=== PATIENT | male | born 1955 | race Caucasian/White ===

== ENCOUNTER 2016-08-06 09:53 | Emergency (ER) | payer OTHER ==
[~2016-08-06] VITALS: Wt 72.0 kg
[2016-08-06] MEDS ORDERED: SOD CHLORIDE 0.9% 1,000 ML IV STA (10:10)
[2016-08-06] MEDS ORDERED: ONDANSETRON 4 MG INJ IV STA (10:10)
[2016-08-06] MEDS ORDERED: morphine 4 MG/ML VIAL IV STA (10:10)
--- NOTE | 2016-08-06 10:10 | ERA ---
ER Documentation Chief Complaint Date/Time DATE: 08/06/16 TIME: 10:10 Chief Complaint abd pain for the past few months. nausea and diarrhea. mild blood in stools HPI 61-year-old male with a history of diverticulitis, prediabetes, gastritis/GERD and hernia repair April 2016 ambulatory to the ED complaining of a 2-3 week history of mild to moderate, achy and crampy diffuse lower abdominal pain which localizes to the left lower quadrant. No relieving or exacerbating factors. Nausea and constipation but no vomiting or diarrhea. Occasional blood-streaked stools. No hematemesis. He has also been experiencing intermittent palpitations over the last several weeks but denies chest pain or shortness of breath. No shortness of breath or cough. No weight loss or gain. No night sweats. Denies fevers or chills. ROS All systems reviewed and are negative except as per history of present illness. Medications Home Meds No Active Prescriptions or Reported Meds Allergies Allergies: Coded Allergies: No Known Allergy (Unverified , 08/06/16) PMhx/Soc Reviewed in chart. As per HPI History of Surgery: Yes (Right inguinal hernia repair 04/2016) Hx Neurological Disorder: No Hx Respiratory Disorders: No Hx Cardiac Disorders: No Hx Psychiatric Problems: No Hx Miscellaneous Medical Probl: Yes (Prediabetes, diverticulitis) Hx Alcohol Use: No Hx Substance Use: No Hx Tobacco Use: No FmHx Mother: Diabetes Physical Exam Vitals Vital Signs Date Time Temp Pulse Resp B/P Pulse Ox O2 Delivery O2 Flow Rate FiO2 08/06/16 09:55 98.6 88 20 157/91 98 Physical Exam Const: Alert, anxious but in no acute distress. Head: Atraumatic Eyes: Normal Conjunctiva ENT: Normal External Ears, Nose and Mouth. Neck: Full range of motion. Nontender. No JVD. No lymphadenopathy. Resp: Breath sounds are equal and clear to auscultation bilaterally Cardio: Regular rate and rhythm, no murmurs Abd: Soft, mild, diffuse lower abdominal tenderness but no rebound or guarding. No masses or abnormal pulsations. Skin: No petechiae or rashes Back: No midline or flank tenderness Ext: No cyanosis, or edema Neur: Awake and alert. Cranial nerves II through XII are grossly intact. No focal deficit observed. Psych: Patient appears anxious but not depressed. Result Diagram: 08/06/16 1020 08/06/16 1020 Results 24 hrs Laboratory Tests Test 08/06/16 10:20 08/06/16 10:42 Alanine Aminotransferase (ALT/SGPT) 30IU/L Albumin 4.1g/dl Albumin/Globulin Ratio 1.41 Alkaline Phosphatase 87IU/L Anion Gap 13 Aspartate Amino Transf (AST/SGOT) 36IU/L Basophils # 0.010^3/ul Basophils % 0.5% Blood Urea Nitrogen 7mg/dl Calcium Level 9.0mg/dl Carbon Dioxide Level 28mmol/L Chloride Level 94mmol/L Creatinine 0.84mg/dl Direct Bilirubin 0.00mg/dl Eosinophils # 0.010^3/ul Eosinophils % 0.9% Globulin 2.90g/dl Glucose Level 107mg/dl Hematocrit 41.3% Hemoglobin 14.4g/dl Indirect Bilirubin 0.4mg/dl Lipase 76U/L Lymphocytes # 0.810^3/ul Lymphocytes % 20.2% Mean Corpuscular Hemoglobin 33.7pg Mean Corpuscular Hemoglobin Concent 34.8g/dl Mean Corpuscular Volume 97.1fl Mean Platelet Volume 7.5fl Monocytes # 0.410^3/ul Monocytes % 9.3% Neutrophils # 2.610^3/ul Neutrophils % 69.1% Nucleated Red Blood Cells # 0.010^3/ul Nucleated Red Blood Cells % 0.0/100WBC Platelet Count 38659^3/UL Potassium Level 4.3mmol/L Red Blood Count 4.2610^6/ul Red Cell Distribution Width 13.1% Sodium Level 131mmol/L Total Bilirubin 0.4mg/dl Total Protein 7.0g/dl Troponin I < 0.012ng/ml White Blood Count 3.810^3/ul Urine Bacteria OCCASIONAL Urine Bilirubin NEGATIVE Urine Clarity CLEAR Urine Color LT. YELLOW Urine Glucose NEGATIVE% Urine Hemoglobin TRACE Urine Ketones NEGATIVE Urine Leukocyte Esterase NEGATIVE Urine Microscopic RBC 0-2/HPF Urine Microscopic WBC 0-2/HPF Urine Nitrite NEGATIVE Urine Specific [place] <=1.005 Urine Total Protein NEGATIVE Urine Urobilinogen 0.2 E.U./dL Urine pH 6.0 Current Medications Medications (Trade) Dose Ordered Sig/Irina Route PRN Reason Start Time Stop Time Status Last Admin Dose Admin Sodium Chloride (NS) 1,000 ml @ 1,000 mls/hr Q1H STAT IV 08/06/16 10:10 08/06/16 11:09 08/06/16 10:38 Morphine Sulfate (morphine) 4 mg ONCE STAT IV 08/06/16 10:10 08/06/16 10:11 08/06/16 10:38 Ondansetron HCl (Zofran Inj) 4 mg ONCE STAT IV 08/06/16 10:10 08/06/16 10:11 08/06/16 10:38 IV Flush 10 ml 10 ml STK-MED ONCE .ROUTE 08/06/16 11:28 08/06/16 11:29 DC Sodium Chloride (NS) 100 ml @ ud STK-MED ONCE .ROUTE 08/06/16 11:28 08/06/16 11:29 DC Iohexol (Omnipaque 300mg/ ml) 150 ml STK-MED ONCE .ROUTE 08/06/16 11:28 08/06/16 11:29 DC RHYTHM STRIP INTERPRETATION: Time:10:15. Sinus rhythm. Ventricular rate 74. No ectopy. Indication: Palpitations. EKG: TIME: 12:58. Sinus rhythm with sinus arrhythmia. Rate 72. Septal Q waves in leads V1 and V2. No acute ST segment elevation or depression. No ectopy. EP Interpretation: Abnormal EKG. IMAGING: PROCEDURE: XR Chest. CLINICAL INDICATION: Abdominal Pain. Chest pain. TECHNIQUE: Single frontal chest x-ray. COMPARISON: None. FINDINGS: The lungs are clear of acute infiltrates, edema, effusions, or masses.. The cardiomediastinal silhouette is unremarkable. The osseous structures are intact. IMPRESSION: No acute cardiopulmonary disease. RPTAT: HJPL .Dirk Espinoza MD, MD Date Time Electronically viewed and signed by .Dirk Espinoza MD, on 08/06/2016 12:10 PROCEDURE: CT Abdomen and Pelvis with contrast. CLINICAL INDICATION: Abdominal pain TECHNIQUE: CT scan of the abdomen and pelvis with contrast was performed on a multidetector high-resolution CT scanner. 90 cc of Omnipaque-300 was injected intravenously. No oral contrast was administered. Coronal and sagittal reformatted images were obtained from the axial source images. Images were reviewed on a high-resolution PACS workstation. The total exam CTDI equals 10.26 mGy and the total exam DLP equals 615.82 mGy-cm. One or more of the following dose reduction techniques were used: - Automated exposure control. - Adjustment of the mA and/or kV according to patient size. - Use of iterative reconstruction technique. COMPARISON: None. FINDINGS: Lungs: Linear atelectasis/fibrosis is seen at the lung bases. Centrolobular emphysematous changes are apparent in the right lower lung lobe. Cylindrical bronchiectasis is seen in the right lower lobe and to a lesser extent left lower lobe. Liver: No abnormality seen. Gallbladder: No abnormality seen. Spleen: No abnormality seen. Stomach: Food material/debris, fluid and air in the stomach. Pancreas: No abnormality seen. Adrenals: No abnormality seen. Kidneys: Mild to moderate right hydronephrosis and mild left hydronephrosis which could be secondary to full bladder.. No renal or ureteral stone is seen on this contrast-enhanced study. Abdominal aorta: No aneurysm seen. Atherosclerotic calcification is seen. Calcification in iliac arteries. Lymph nodes: No enlarged lymph nodes are seen. Small bowel: No dilated small bowel loops are seen. Colon: Moderate amount of stool in the rectum. Diverticula in transverse colon. There is no specific evidence of acute diverticulitis seen. Appendix: No abnormality seen. Bladder: No abnormality seen Pelvic organs: No abnormality seen Ascites: None seen. Osseous structures: Lumbar spondylosis. Mild degenerative changes at sacroiliac joints and hips. Small likely bone island in the right femoral head. Bilateral L5 spondylolysis with grade 1 L5 on S1 spondylolisthesis. Schmorl's nodes in thoracolumbar spine. The patient appears to possibly be status post right inguinal hernia surgery. Correlation with past surgical history. IMPRESSION: Centrolobular emphysematous changes are apparent in the right lower lung lobe. Cylindrical bronchiectasis is seen in the right lower lobe and to a lesser extent left lower lobe. Mild to moderate right hydronephrosis and mild left hydronephrosis which could be secondary to full bladder. Please see above. RPTAT: HJES .Dirk Díaz MD, MD Date Time Electronically viewed and signed by .Dirk Díaz MD, MD on 08/06/2016 11:55 .S/ .L/ Procedures/MDM DOCUMENTS REVIEWED: ED nurse, no prior records available REEXAMINATION/REEVALUATION: Time: 12:30. Sinus rhythm without ectopy. Abdomen soft nontender. No nausea or vomiting. [employer]-year-old male with a history of diverticulitis, prediabetes, gastritis/GERD and hernia repair April 2016 ambulatory to the ED complaining of a 2-3 week history of abdominal pain and palpitations. CT reveals diverticulosis no diverticulitis. Mild bilateral hydronephrosis of uncertain etiology as there is no evidence of obstruction and constipation. No acute intra-abdominal process including abdominal aortic aneurysm, obstruction, appendicitis or mesenteric ischemia. No UTI or pyelonephritis. Palpitations of uncertain etiology. No acute ischemic EKG changes or elevated troponin. Stable for discharge with precautionary instructions and outpatient follow-up as counseled. Patient understands that the etiology of his symptoms are not definitively established and outpatient follow-up is mandatory. Counseled patient regarding diagnostic workup, diagnosis and need for followup. Understands to return to ED if symptoms recur, worsen or any other concerns. Departure Diagnosis: Primary Impression: Abdominal pain of unknown etiology Additional Impressions: Constipation Qualified Code: K59.00 - Constipation, unspecified constipation type Palpitations Condition: Stable Patient Instructions: Abdominal Pain, Unkown Cause, (Male), Constipation (Adult ) ADRI DWYER MD Aug 06, 2016 10:10 ADRI DWYER MD Aug 06, 2016 10:10
[2016-08-06 10:45] LABS: ALBUMIN 4.1 g/dl (3.3-4.9); CHLORIDE 94 mmol/L (97-110)
[2016-08-06 10:46] LABS: POTASSIUM 4.3 mmol/L (3.5-5.1); SODIUM 131 mmol/L (135-144)
[2016-08-06 10:48] LABS: ALBUMIN/GLOBULIN RATIO 1.41; ALKALINE PHOSPHATASE 87 IU/L (42-121); ANION GAP 13 (8-16); ASPARTATE AMINO TRANSFERASE 36 IU/L (15-46); BILIRUBIN,INDIRECT 0.4 mg/dl (0-1.1); BILIRUBIN,TOTAL 0.4 mg/dl (0.2-1.3); BLOOD UREA NITROGEN 7 mg/dl (7-20); CARBON DIOXIDE 28 mmol/L (21-31); CREATININE 0.84 mg/dl (0.61-1.24)
[2016-08-06 10:49] LABS: ALANINE AMINOTRANSFERASE 30 IU/L (13-69); GLUCOSE 107 mg/dl (70-220)
[2016-08-06 10:54] LABS: BASOPHILS % 0.5 % (0.0-2.0); EOSINOPHILS % 0.9 % (0.0-7.0); HEMATOCRIT 41.3 % (42.0-52.0); HEMOGLOBIN 14.4 g/dl (14.0-18.0); LYMPHOCYTES # 0.8 10^3/ul (0.8-2.9); LYMPHOCYTES % 20.2 % (15.0-51.0); MEAN CORPUSCULAR HEMOGLOBIN 33.7 pg (29.0-33.0); MEAN CORPUSCULAR HGB CONC 34.8 g/dl (32.0-37.0); MEAN CORPUSCULAR VOLUME 97.1 fl (82.0-101.0); MEAN PLATELET VOLUME 7.5 fl (7.4-10.4); MONOCYTE # 0.4 10^3/ul (0.3-0.9); MONOCYTES % 9.3 % (0.0-11.0); NEUTROPHIL # 2.6 10^3/ul (1.6-7.5); NEUTROPHILS % 69.1 % (39.0-77.0); PLATELET COUNT 226 10^3/UL (140-440); RED BLOOD COUNT 4.26 10^6/ul (4.70-6.10); RED CELL DISTRIBUTION WIDTH 13.1 % (11.5-14.5); UNCORRECTED WBC 3.8 10^3/ul (4.8-10.8); WHITE BLOOD COUNT 3.8 10^3/ul (4.8-10.8)
[2016-08-06 10:56] LABS: CONDITION 1
[2016-08-06 11:08] LABS: TROPONIN-I < 0.012 ng/ml (0.00-0.12)
[2016-08-06 11:11] LABS: ADD UMIC YES; URINE BILIRUBIN (Dip) NEGATIVE (NEGATIVE); URINE BLOOD (Dip) TRACE (NEGATIVE); URINE COLOR LT. YELLOW (YELLOW); URINE GLUCOSE (Dip) NEGATIVE (NEGATIVE); URINE KETONES (Dip) NEGATIVE (NEGATIVE); URINE LEUKOCYTE ESTERASE (Dip) NEGATIVE (NEGATIVE); URINE NITRITE (Dip) NEGATIVE (NEGATIVE); URINE TOTAL PROTEIN (Dip) NEGATIVE (NEGATIVE); URINE UROBILINOGEN (Dip) 0.2 E.U./dL (0.1-1.0)
[2016-08-06] MEDS ORDERED: IOHEXOL 300MG/ML 150 ML BTL ONE (11:28)
[2016-08-06] MEDS ORDERED: SOD CHLORIDE 0.9% 100 ML ONE (11:28)
[2016-08-06 11:35] LABS: BACTERIA,URINE OCCASIONAL; URINE RBCS 0-2 /HPF (0)
--- NOTE | 2016-08-06 11:55 | RADRPT ---
PROCEDURE: CT Abdomen and Pelvis with contrast. CLINICAL INDICATION: Abdominal pain TECHNIQUE: CT scan of the abdomen and pelvis with contrast was performed on a multidetector high-r Rapid7olution CT scanner. 90 cc of Omnipaque-300 was injected intravenously. No oral contrast was admini stered. Coronal and sagittal reformatted images were obtained from the axial source images. Images w ere reviewed on a high-resolution PACS workstation. The total exam CTDI equals 10.26 mGy and the to yang exam DLP equals 615.82 mGy-cm. One or more of the following dose reduction techniques were used: - Automated exposure control. - Adjustment of the mA and/or kV according to patient size. - Use of iterative reconstruction technique. COMPARISON: None. FINDINGS: Lungs: Linear atelectasis/fibrosis is seen at the lung bases. Centrolobular emphysematous changes a re apparent in the right lower lung lobe. Cylindrical bronchiectasis is seen in the right lower lob e and to a lesser extent left lower lobe. Liver: No abnormality seen. Gallbladder: No abnormality seen. Spleen: No abnormality seen. Stomach: Food material/debris, fluid and air in the stomach. Pancreas: No abnormality seen. Adrenals: No abnormality seen. Kidneys: Mild to moderate right hydronephrosis and mild left hydronephrosis which could be secondary to full bladder.. No renal or ureteral stone is seen on this contrast-enhanced study. Abdominal aorta: No aneurysm seen. Atherosclerotic calcification is seen. Calcification in iliac a rteries. Lymph nodes: No enlarged lymph nodes are seen. Small bowel: No dilated small bowel loops are seen. Colon: Moderate amount of stool in the rectum. Diverticula in transverse colon. There is no specif ic evidence of acute diverticulitis seen. Appendix: No abnormality seen. Bladder: No abnormality seen Pelvic organs: No abnormality seen Ascites: None seen. Osseous structures: Lumbar spondylosis. Mild degenerative changes at sacroiliac joints and hips. S mall likely bone island in the right femoral head. Bilateral L5 spondylolysis with grade 1 L5 on S1 spondylolisthesis. Schmorl's nodes in thoracolumbar spine. The patient appears to possibly be status post right inguinal hernia surgery. Correlation with past surgical history. IMPRESSION: Centrolobular emphysematous changes are apparent in the right lower lung lobe. Cylindrical bronchie ctasis is seen in the right lower lobe and to a lesser extent left lower lobe. Mild to moderate righ t hydronephrosis and mild left hydronephrosis which could be secondary to full bladder. Please see a wesley. RPTAT: HJES .Dirk Díaz MD, Date Time Electronically viewed and signed by .Dirk Díaz MD, MD on 08/06/2016 11:55 .S/
--- NOTE | 2016-08-06 12:10 | RADRPT ---
PROCEDURE: XR Chest. CLINICAL INDICATION: Abdominal Pain. Chest pain. TECHNIQUE: Single frontal chest x-ray. COMPARISON: None. FINDINGS: The lungs are clear of acute infiltrates, edema, effusions, or masses.. The cardiomediastinal silho uette is unremarkable. The osseous structures are intact. IMPRESSION: No acute cardiopulmonary disease. RPTAT: HJPL .Dirk Espinoza MD, Date Time Electronically viewed and signed by .Dirk Espinoza MD, on 08/06/2016 12:10 .L/
[2016-08-06] MEDS ORDERED: DOCU-144 PO (13:24)
[2016-08-06 14:06] VITALS: BP 144/58; PULSE 89; RESP 18
== END 2016-08-06 15:21 | disposition home or self-care (01) ==
LOC: E/R 09:53
DX: R10.32 Left lower quadrant pain (principal); R40.2252 Coma scale, best verbal response, oriented, at arrival to emergency department; K59.00 Constipation, unspecified; R00.2 Palpitations; R11.0 Nausea; R40.2362 Coma scale, best motor response, obeys commands, at arrival to emergency department; R40.2142 Coma scale, eyes open, spontaneous, at arrival to emergency department
CPT/HCPCS: 36415; 71010; 74177; 80053; 81001; 83690; 84484; 85025; 93005; 96374; 96375; 99285; J2270; J2405; J7030; Q9967; 81003

== ENCOUNTER 2016-10-10 06:08 | Day surgery (SDC) | payer OTHER ==
[~2016-10-10] VITALS: Ht 177.8 cm; Wt 67.7 kg
[~2016-10-10 06:08] MED LIST: DOCU-144 PO
[2016-10-10 06:30] VITALS: BP 101/68; PULSE 58; Ht 177.8 cm; Wt 67.7 kg
[2016-10-10] MEDS ORDERED: MIDAZOLAM 1 MG/ML 2 ML INJ ONE ×2 (07:37)
[2016-10-10] MEDS ORDERED: FENTAnyl 50 MCG/ML VIAL ONE (07:37)
--- NOTE | 2016-10-10 09:59 | GILP ---
DATE OF PROCEDURE: 10/10/2016 NAME OF PROCEDURE: Esophagogastroduodenoscopy and biopsy. SURGEON: Cristhian Montelongo MD PREOPERATIVE DIAGNOSES: 1. Abdominal pain. 2. Chronic heartburn. POSTOPERATIVE DIAGNOSES: 1. Gastroesophageal reflux disease. 2. Gastritis with erosions. 3. Gastric mucosal biopsies were taken for Helicobacter pylori test. INDICATION FOR THE PROCEDURE: Mr. Sivakumar Carmen is a 61-year-old male patient who had upper abdominal pain and chronic heartburn not responding to therapy. The patient was scheduled for endoscopic exam ination for further evaluation. The procedure and possible complications are well explained to the patient. The patient understood and consented to the procedure. DESCRIPTION OF PROCEDURE: Under the influence of fentanyl and Versed, the gastroscope was carefully introduced into the esophagus and under direct vision it was advanced to the stomach and through th e pylorus into the duodenal bulb and descending duodenum. FINDINGS: ESOPHAGUS: The patient had gastroesophageal reflux disease. STOMACH: He had gastritis with erosions. Gastric mucosal biopsies were taken for H. pylori test. DUODENUM: Normal. He tolerated the procedure very well and there was no complication from the procedure. At the end o f the procedure, he was awake with stable vital signs and he was discharged home to the care of his family. IMPRESSION: 1. Gastroesophageal reflux disease. 2. Gastritis with erosions. 3. Gastric mucosal biopsies were taken for Helicobacter pylori test. PLAN: 1. Omeprazole 40 mg p.o. q.a.m. 2. Zantac 300 mg p.o. at bedtime. 3. Await H. pylori test report. Dictated By: CRISTHIAN NIETO/GLENIS Conf#: [id number] DID#: [id number] CC: CRISTHIAN MONTELONGO MD;*EndCC*
== END 2016-10-10 16:30 | disposition home or self-care (01) ==
LOC: GIL 06:08
PROVIDERS: ATTEND Internal Medicine Gastroenterology
DX: R10.9 Unspecified abdominal pain (principal); K21.9 Gastro-esophageal reflux disease without esophagitis; R14.0 Abdominal distension (gaseous); K59.00 Constipation, unspecified; K29.70 Gastritis, unspecified, without bleeding
CPT/HCPCS: 43239; 87081; J2250; J3010